=== PATIENT | female | born 1950 | race Hispanic/Latino ===

== ENCOUNTER 2017-09-04 09:41 | Day surgery (SDC) | payer MEDICARE ==
[2017-09-02 16:00] VITALS: BP 166/82
[2017-09-02 16:33] LABS: EOSINOPHILS % (AUTO) 8.8 % (0.0-8.0); HEMATOCRIT 39.5 % (36-48); LYMPHOCYTES % (AUTO) 24.7 % (21.0-51.0); MEAN CORPUSCULAR HGB CONC 34.5 g/dL (32.0-36.0); MEAN CORPUSCULAR VOLUME 89.9 fL (79-99); MONOCYTES % (AUTO) 6.6 % (3.0-13.0); NEUTROPHILS % (AUTO) 58.9 % (40.0-77.0); PLATELET COUNT (AUTO) 238 K/uL (130-400); RED CELL DISTRIBUTION WIDTH 13.3 % (11.0-15.5); WHITE BLOOD COUNT (AUTO) 6.2 K/uL (4.8-10.8)
[2017-09-02 16:38] LABS: APPEARANCE,URINE CLEAR (CLEAR); BILIRUBIN,URINE NEGATIVE (NEGATIVE); COLOR,URINE YELLOW (YELLOW); GLUCOSE, URINE (UA) NEGATIVE (NEGATIVE); KETONES,URINE NEGATIVE (NEGATIVE); LEUKOCYTE ESTERASE ,URINE NEGATIVE (NEGATIVE); NITRATE,URINE NEGATIVE (NEGATIVE); OCCULT BLOOD,URINE TRACE-INTACT (NEGATIVE); PH,URINE 5.5 (5.0-8.0); PROTEIN,URINE NEGATIVE (NEGATIVE); UROBILINOGEN,URINE 0.2 mg/dL (0.2-1.0)
[2017-09-02 16:41] LABS: CREATININE 0.8 mg/dL (0.5-1.5); INR 0.96 (0.85-1.15); POTASSIUM 3.9 mmol/L (3.5-5.1); PROTHROMBIN TIME 10.1 SEC (9.6-11.6)
[2017-09-02 17:07] LABS: RBC,URINE 0-1 /HPF (0-1); SQUAMOUS EPITHELIAL CELL,UR None Seen /HPF (0-2); WBC,URINE 0-1 /HPF (0-1)
[2017-09-02 17:08] LABS: BACTERIA,URINE Rare /HPF (None Seen)
[2017-09-04] VITALS (16 sets, daily range): BP systolic 132–156; BP diastolic 76–91
[~2017-09-04] VITALS: Ht 152.4 cm; Wt 67.5 kg
[~2017-09-04 09:41] MED LIST: ALEN35 PO; GENTAMICIN 80 MG/NS 100 ML PB 100 ML IV PRN; LOSA100T29 PO; OMEP20CA10 PO; WATER FOR INJECTION,STERILE 20 ML VIAL IJ ONE
[2017-09-04] MEDS: CEFAZOLIN SODIUM 1 GM VIAL IVP ONE ×2 (10:30→13:47)
[2017-09-04] MEDS ORDERED: CEFAZOLIN SODIUM 1 GM VIAL ONE (10:43)
[2017-09-04] MEDS ORDERED: LACTATED RINGERS 1000ML 1,000 ML IV ONE (10:43)
[2017-09-04] MEDS ORDERED: SULFANILAMIDE 120 GM TUBE VG ONE (12:48)
[2017-09-04] MEDS ORDERED: OCTYL 2-CYANOACRYLATE 1 EACH TP ONE (12:48)
[2017-09-04] MEDS ORDERED: LIDOCAINE HCL/EPINEPHRINE 50 ML VIAL IJ ONE (12:48)
[2017-09-04] MEDS ORDERED: NEOMY SULF/POLYMYXIN B SULFATE 1 ML AMPUL IR ONE (12:49)
[2017-09-04] MEDS ORDERED: MIDAZOLAM HCL 1 MG/ML 2ML VIAL ONE (13:38)
[2017-09-04] MEDS ORDERED: PROPOFOL 10 MG/ML 20ML VIAL IV ONE (13:39)
[2017-09-04] MEDS ORDERED: ROCURONIUM BROMIDE 10MG/1ML 5ML VL ONE (13:39)
[2017-09-04] MEDS ORDERED: FENTANYL CITRATE PF 50 MCG/1 ML 5ML AMP IV ONE (13:39)
[2017-09-04] MEDS ORDERED: EPHEDRINE SULFATE 50 MG/ML AMPULE ONE (14:24)
== END 2017-09-04 17:10 | disposition home or self-care (01) ==
LOC: DAH 09:41
PROVIDERS: ATTEND Urology
DX: N39.46 Mixed incontinence (principal); K21.9 Gastro-esophageal reflux disease without esophagitis; Z90.710 Acquired absence of both cervix and uterus; Z90.721 Acquired absence of ovaries, unilateral
CPT/HCPCS: 36415; 57288; 71045; 80048; 81001; 85025; 85610; 87088; 93005; A4215; A4218; A4344; C1771; J0690; J1580; J2250; J2704; J3010; J3490 ×3; J7120 ×2